=== PATIENT | female | born 1985 | race Caucasian/White ===

== ENCOUNTER → 2019-01-07 10:42 | Outpatient (CLI) | payer OTHER, MEDICAID, SELFPAY ==
--- NOTE | 2019-01-07 | DI.RAD.S_ITS ---
PROCEDURE: XR ABDOMEN 1V INDICATIONS: RENAL CALCULUS TECHNIQUE: One view of the abdomen acquired. COMPARISON: Retrograde urogram 12/27/2018, CT [facility]UB 12/21/2818. FINDINGS: Surgical changes and devices: Right double-J ureteral stent is in expected position. Bowel: Bowel gas pattern is normal. Soft tissues: Multiple right sided renal calculi are seen. Larger calculi 1.2 cm and 0.8 cm. Visualized solid organ contours appear normal in size. Bones: No suspicious bony lesions. No pleural effusion. IMPRESSION: Right double-J ureteral stent is in expected position. Right sided renal calculi. Dictated by: Luke Grey M.D. on 01/07/2019 at 11:16 Approved by: Luke Grey M.D. on 01/07/2019 at 11:19
== END ==
PROVIDERS: Family Provider Internal Medicine; PCP Internal Medicine; Visit Provider Urology
DX: N20.0 Calculus of kidney (principal); Z96.0 Presence of urogenital implants
CPT/HCPCS: 74018

== ENCOUNTER → 2019-02-06 11:54 | Outpatient (CLI) | payer OTHER, MEDICAID, SELFPAY ==
--- NOTE | 2019-02-06 | DI.RAD.S_ITS ---
PROCEDURE: XR ABDOMEN 1V INDICATIONS: RENAL CALCULUS TECHNIQUE: One view of the abdomen acquired. COMPARISON: Located Within [facility], CR, XR ABDOMEN 1 VIEW, 01/17/2019, 6:42. [facility], CR, XR ABDOMEN 1V, 01/07/2019, 10:58. FINDINGS: Surgical changes and devices: A double-J ureteral stent is again identified with coiled loop projecting over the expected locations of the right renal pelvis and bladder. Bowel: Bowel gas pattern is nonobstructive. Soft tissues: There is an approximately 0.9 cm ill-defined indistinct radiopaque density projecting over the right upper quadrant of the abdomen, in similar location to previously described right renal calculi identified on comparison radiographs of 01/07/19. Bones: No suspicious bony lesions. IMPRESSION: 0.9 cm ill-defined radiopaque density projecting over the right upper quadrant of the abdomen is in similar location to previously identified right renal calculi described on comparison radiographs of 01/07/19 and 01/17/19, and may represent a residual nephrolith versus intraluminal bowel contents. Attention on follow up radiographs recommended. Dictated by: Gabo Patel M.D. on 02/06/2019 at 14:26 Approved by: Gabo Patel M.D. on 02/06/2019 at 14:32
== END ==
PROVIDERS: PCP Internal Medicine; Visit Provider Urology
DX: N20.0 Calculus of kidney (principal)
CPT/HCPCS: 74018